=== PATIENT | female | born 1995 | race Caucasian/White ===

== ENCOUNTER 2021-09-26 23:52 | Emergency (ER) | payer OTHER ==
[2021-09-27] MEDS ORDERED: SILVADENE20 GM TOP (00:46)
[2021-09-27] MEDS ORDERED: NAPROXEN500 MG PO (00:46)
[2021-09-27] MEDS ORDERED: NORCO 5-325 TA1 EACH PO (00:46)
== END 2021-09-27 01:10 | disposition home or self-care (01) ==
LOC: FER 23:52
DX: T23.101A Burn of first degree of right hand, unspecified site, initial encounter (principal); T31.0 Burns involving less than 10% of body surface; F17.210 Nicotine dependence, cigarettes, uncomplicated; Z23 Encounter for immunization; Z28.310 Unvaccinated for COVID-19; X08.8XXA Exposure to other specified smoke, fire and flames, initial encounter; Y92.009 Unspecified place in unspecified non-institutional (private) residence as the place of occurrence of the external cause
CPT/HCPCS: 90471; 90715